=== PATIENT | male | born 1945 | race Caucasian/White ===

== ENCOUNTER 2016-07-01 04:31 | Inpatient (IN) | payer OTHER ==
[2016-06-25 15:21] LABS: HEMOGLOBIN 15.3 g/dL (14.0-18.0); MCH 32.7 PG (27-31); MCHC 36.4 g/dL (33-37); MCV 89.7 FL (81-99); MPV 9.6 FL (7.4-10.4); RBC 4.68 XMIL (4.7-6.1)
--- NOTE | 2016-06-25 15:27 | EKG Report ---
Test Performed on : 06/25/2016 3:11:04 PM Test Reason : PAT Blood Pressure : / mmHG Vent. Rate : 071 BPM Atrial Rate : 071 BPM P-R Int : 182 ms QRS Dur : 092 ms QT Int : 388 ms P-R-T Axes : 030 -21 -11 degrees QTc Int : 421 ms Sinus rhythm. with premature atrial complexes. Nonspecific T wave abnormality Inferior leads Otherwise normal ECG No previous ECGs available Confirmed by Jaime Landis MD ([id number]) on 06/26/2016 8:58:12 PM
[2016-06-25 15:44] LABS: AGAP 13; BUN 20 mg/dL (8-22); CALCIUM 9.3 mg/dL (8.8-10.2); CHLORIDE 100 mmol/L (98-107); COSMO 279; POTASSIUM 3.5 mmol/L (3.5-5.1); SODIUM 139 mmol/L (136-145); TCO2 26 mmol/L (25-35)
[2016-06-25 16:18] LABS: PROTIME 10.2 Seconds (9.2-11.7); PTT 26.3 Seconds (22.0-36.0)
[2016-07-01] MEDS ORDERED: REGLAN ONE (05:25)
[2016-07-01] MEDS ORDERED: PEPCID ONE (05:25)
[2016-07-01] MEDS ORDERED: LR 1,000 ML ONE (05:26)
[2016-07-01] MEDS ORDERED: KEFZOL 2 GM/D5W 50 ML ONE (05:26)
[2016-07-01 08:14] LABS: URINE MICRO REVIEW NEEDED? NO; URINE SOURCE CATH
[2016-07-01 08:20] LABS: BILIRUBIN URINE NEGATIVE (NEGATIVE); BLOOD URINE NEGATIVE (NEGATIVE); COLOR YELLOW; GLUCOSE URINE NEGATIVE (NEGATIVE); LEUKOCYTES URINE NEGATIVE (NEGATIVE); NITRITE URINE NEGATIVE (NEGATIVE); PROTEIN URINE TRACE mg/dL (NEGATIVE); SP GRAVITY URINE 1.028; TURBIDITY URINE CLEAR (CLEAR); UROBILINOGEN URINE NORMAL (NORMAL)
[2016-07-01 08:22] LABS: UR EPITHELIAL CELLS <10 /HPF (<10); URINE BACTERIA NEGATIVE /HPF; URINE WBC <10 /HPF (<10)
[2016-07-01] MEDS ORDERED: FENTANYL ONE (10:16)
[2016-07-01] MEDS ORDERED: DIPRIVAN 1% ONE (10:16)
[2016-07-01] MEDS ORDERED: VERSED ONE (10:16)
[2016-07-01] MEDS ORDERED: DITROPAN ONE (10:17)
[2016-07-01] MEDS: DILAUDID ONE ×4 (10:19→11:20)
[2016-07-01] MEDS ORDERED: NEOSTIGMINE ONE (10:20)
[2016-07-01] MEDS ORDERED: ZOFRAN ONE (10:20)
[2016-07-01] MEDS ORDERED: EPHEDRINE ONE (10:20)
[2016-07-01] MEDS ORDERED: ROBINUL ONE (10:20)
[2016-07-01] MEDS ORDERED: XYLOCAINE-MPF 2% ONE (10:20)
[2016-07-01] MEDS ORDERED: NORCURON ONE (10:20)
[2016-07-01] MEDS ORDERED: DECADRON ONE (10:21)
[2016-07-01] MEDS ORDERED: OFIRMEV 1000 MG/ISOTONIC SOLN 100 ML ONE (10:21)
[2016-07-01] MEDS ORDERED: LR 3,000 ML ONE (10:21)
[2016-07-01] MEDS ORDERED: QUELICIN (DOSE) ONE (10:21)
[2016-07-01] MEDS ORDERED: KCL ONE (10:25)
[2016-07-01] MEDS ORDERED: D5 ONE (10:25)
[2016-07-01] MEDS ORDERED: 1/2 NS ONE (10:25)
[2016-07-01] MEDS ORDERED: D5 1/2 NS 1,000 ML ONE (10:31)
[2016-07-01] MEDS ORDERED: LABETALOL IV PRN (10:50)
[2016-07-01] MEDS ORDERED: PHENERGAN PR PRN (10:50)
[2016-07-01] MEDS ORDERED: B & O 15A SUPP PR PRN (10:50)
[2016-07-01] MEDS ORDERED: PHENERGAN PO PRN (10:50)
[2016-07-01] MEDS ORDERED: TYLENOL PO PRN (10:50)
[2016-07-01] MEDS ORDERED: SODIUM CHLORIDE 0.9% INJ PRN (10:50)
[2016-07-01] MEDS ORDERED: PHENERGAN IV PRN (10:50)
[2016-07-01] MEDS ORDERED: BENADRYL LIQUID PO PRN (10:50)
[2016-07-01] MEDS ORDERED: DITROPAN PO PRN (10:50)
[2016-07-01] MEDS ORDERED: ZOFRAN IV PRN (10:50)
[2016-07-01] MEDS ORDERED: BENADRYL IV PRN (10:50)
[2016-07-01] MEDS: D5 1/2 NS 1,000 ML IV SCH ×2 (11:20→20:12)
[2016-07-01] MEDS: MORPHINE IV PRN ×4 (11:24→23:51)
[2016-07-01] MEDS: NORCO-7.5 PO PRN (13:23)
[2016-07-01] MEDS: KEFZOL 1 GM/D5W 50 ML IV SCH ×2 (15:11→23:52)
[2016-07-01] MEDS: PERIDEX MT SCH (20:10)
[2016-07-01] MEDS ORDERED: COLACE PO SCH (21:00)
[2016-07-02] MEDS: MORPHINE IV PRN ×2 (03:28→08:29)
[2016-07-02] MEDS: NORCO-7.5 PO PRN (05:01)
[2016-07-02] MEDS: D5 1/2 NS 1,000 ML IV SCH ×2 (05:02→06:24)
[2016-07-02] MEDS: KEFZOL 1 GM/D5W 50 ML IV SCH (06:23)
[2016-07-02 07:00] LABS: HEMATOCRIT 34.8 % (42.0-52.0); HEMOGLOBIN 11.9 g/dL (14.0-18.0); MCH 32.1 PG (27-31); MCHC 34.2 g/dL (33-37); MCV 93.8 FL (81-99); MPV 10.3 FL (7.4-10.4); RBC 3.71 XMIL (4.7-6.1)
[2016-07-02 07:14] LABS: AGAP 11; BUN 15 mg/dL (8-22); CALCIUM 8.6 mg/dL (8.8-10.2); CHLORIDE 101 mmol/L (98-107); COSMO 279; POTASSIUM 3.5 mmol/L (3.5-5.1); SODIUM 139 mmol/L (136-145); TCO2 27 mmol/L (25-35)
[2016-07-02] MEDS ORDERED: TUMS PO ONE (07:56)
[2016-07-02 08:17] VITALS: BP 110/68
[2016-07-02] MEDS: PERIDEX MT SCH (08:24)
[2016-07-02] MEDS ORDERED: RELAFEN PO SCH (09:00)
[2016-07-02] MEDS ORDERED: FLONASE NAS SCH (09:00)
[2016-07-02] MEDS ORDERED: DIOVAN PO SCH (09:00)
--- NOTE | 2016-07-02 09:14 | OPERATIVE NOTE ---
PROCEDURE DATE: 07/01/2016 SURGEON: Alphonso Wilcox MD. 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 PROCEDURE PERFORMED: Robotic-assisted laparoscopic prostatectomy, bilateral pelvic lymph node dissection, laparoscopic urethral suspension. INDICATIONS: This is a 71-year-old male who presented with a rise in PSA. He underwent prostate biopsy in May. It revealed multiple foci of Priti 6 prostate adenocarcinoma as well as a focus of Priti 7 prostate adenocarcinoma. The patient originally felt adamant about active surveillance but changed his mind and presents for definitive surgical intervention. He was counseled on the risks including long-term incontinence and erectile dysfunction. FINDINGS: Adequate hemostasis at the conclusion of the case, watertight vesicourethral anastomosis at 120 mL. PROCEDURE IN DETAIL: After obtaining informed consent, the patient was brought to the operating room. Perioperative antibiotics and general endotracheal anesthesia were administered. He was placed in a lithotomy position, prepped and draped in a sterile fashion. An 18-Khmer Vasquez catheter was introduced with return of clear urine. We began by making a small stab incision. in his umbilicus and introducing a Veress needle connected to a saline-filled syringe. I could not achieve a positive drop test. Hence, I switched to a midline supraumbilical area where again a small stab incision was made and the Veress needle was reintroduced. I was able confirm a positive drop test, followed by aspiration of fluid in the syringe without evidence of GI contents or blood. We then insufflated his pneumoperitoneal pressure to 15 mmHg. Following that, we marked out the trocar sites for standard prostatectomy. Bovie electrocautery was used to incise the skin and a 12 mm cook's assistant trocar was placed 1st in the left upper quadrant. Examination of the peritoneal cavity revealed no evidence of adhesions but he did have a significant amount of fatty tissue just underneath his umbilicus which explains why it was difficult to obtain a positive drop test on original introduction of the needle. We then placed the rest of the trocars under direct vision. He was placed in steep Trendelenburg position and the robot was docked. We began by incising the peritoneum approximately 3 cm above the rectum and identifying the right vas deferens. It was dissected, transected, and isolated. We did the same thing with the right seminal vesicle. I minimized cautery laterally to the seminal vesicle in order to decrease injury to a neurovascular bundle. We then performed the same thing on the left side. Following that, we dissected anterior to vas to the level of the prostate. Subsequent to that, we dissected posterior to the vas deferens by incising Denonvilliers fascia to develop the perirectal plane. After that, we turned our attention to the bladder. We incised lateral to each medial umbilical ligament, allowing us to gain access to the space of Retzius. Fat around the bladder was reflected and endopelvic fascia was identified. I incised on the lateral edge of the prostate bilaterally and dissected along the contour of the prostate toward the apex. Puboprostatic ligaments were divided sharply. The superficial dorsal venous complex was controlled with bipolar electrocautery. Deep dorsal venous complex was controlled with a 0 V-Loc suture in a figure-of- eight fashion and anterior periosteal suspension. After that, we paid attention to the bladder neck. It was identified by gentle tugging on the Vasquez catheter. Monopolar cautery was used to incise at the level of the bladder neck and eventually I was able to see the Vasquez catheter. The bladder neck was transected circumferentially. The plane was then developed between the prostate and the bladder, allowing me to eventually see the vas deferens and seminal vesicles. Those were brought out onto the field and placed on anterior traction. We then developed and reflected the neurovascular pedicles by detaching them from the edge of the prostate posterolaterally with the use of Hem-O-Temo clips. We avoided electrocautery. This was done bilaterally. As the majority of his disease on biopsy was on the left side, I performed extrafascial sparing and dissection as opposed to on the right side, we performed intrafascial dissection. We then developed the plane posteriorly all the way to the apex. Deep dorsal venous complex was sharply transected. Urethral tissues were spared. I did save some of the urethral length but it was difficult to achieve maximal urethral sparing given his positive Priti 7 sample form the apex of the prostate. The urethra was sharply transected. The prostate was retrieved and placed into an EndoCatch bag. We irrigated the field and we did not see any significant bleeding. We then turned our attention to the pelvic lymph node dissection. On the patient's left side, I identified the external iliac vein and developed a lymph packet just inferior to it all the way to its confluence into the common iliac vein. Laterally, we collected lymph tissue to the level of the pelvic sidewall, medially to the level of perivesical fat, and posteriorly to the level of the obturator vessels and nerve. The nerve was seen and obviously spared. The lymph packet tissue was retrieved and placed into an EndoCatch bag as well. I decreased pneumoperitoneal pressure without evidence of bleeding. I placed a Surgicel hemostatic agent into the lymphadenectomy bed. We then performed the exact same thing on the right side with identical lymph node margins. Following that, we turned our attention to the vesicourethral anastomosis. A 3-0 V-Loc suture was used to perform Jese stitch by reapproximating the perivesical and periurethral tissues in a running fashion. The anastomosis was then performed with a 3-0 V-Loc suture as well in a running fashion in a clockwise and counterclockwise fashion with subsequent cross tying of the sutures. A fresh Vasquez catheter was reintroduced and 120 mL of sterile water was instilled. The anastomosis was tight. Upon instilling more, there was a very small amount of leakage on the left side. Hence, we left it alone and drained the bladder. We decreased the pneumoperitoneal pressure to 3 mmHg without any evidence of bleeding. We then turned our attention to the laparoscopic urethral suspension. Previously spared 3-0 V-Loc suture from the Jese stitch were used to suspend the urethra by placing the suture through the justus-pubic fascia. The urethra was suspended on mild tension. We then once again decreased pneumoperitoneal pressure without evidence of bleeding. The robot was undocked. Trocars were removed, supraumbilical incision was extended, and the prostate and lymph nodes were delivered. The wounds were copiously irrigated. Fascia was closed with 0 Vicryl suture in an interrupted fashion. The 12 mm cook's assistant trocar fascia was closed with interrupted 0 Vicryl suture as well. The wounds were irrigated again. Then 4-0 Monocryl suture was used for subcuticular closure. Dermabond skin adhesive was applied. He was extubated and taken to PACU for further recovery. ESTIMATED BLOOD LOSS: 30 mL. COMPLICATIONS: None. DISPOSITION: To PACU and subsequently to the floor for observation with the Vasquez catheter to gravity drainage.
== END 2016-07-02 09:19 | disposition home or self-care (01) | DRG 708 ==
LOC: SURHOLD 04:31 → 4N 10:14
PROVIDERS: ADMIT Urology; ATTEND Urology
PROC: 0TSD4ZZ Reposition Urethra, Percutaneous Endoscopic Approach (ICD-10-PCS; 2016-07-01)
PROC: 8E0W4CZ Robotic Assisted Procedure of Trunk Region, Percutaneous Endoscopic Approach (ICD-10-PCS; 2016-07-01)
PROC: 0VBQ4ZZ Excision of Bilateral Vas Deferens, Percutaneous Endoscopic Approach (ICD-10-PCS; 2016-07-01)
PROC: 0VT04ZZ Resection of Prostate, Percutaneous Endoscopic Approach (ICD-10-PCS; principal; 2016-07-01 06:58)
PROC: 0VT34ZZ Resection of Bilateral Seminal Vesicles, Percutaneous Endoscopic Approach (ICD-10-PCS; 2016-07-01 06:58)
PROC: 07BC4ZX Excision of Pelvis Lymphatic, Percutaneous Endoscopic Approach, Diagnostic (ICD-10-PCS; 2016-07-01 06:58)
DX: C61 Malignant neoplasm of prostate (principal); M19.90 Unspecified osteoarthritis, unspecified site; Z87.442 Personal history of urinary calculi; Z80.42 Family history of malignant neoplasm of prostate; Z79.899 Other long term (current) drug therapy; Z79.51 Long term (current) use of inhaled steroids
CPT/HCPCS: 80048; 81001; 85027; 85610; 85730; 88307; 88309; 93005; 93010; 94761; 94799; J0131; J0330; J0690; J1100; J1170; J2250; J2270; J2405; J3010; J3480; J7120; J2710